=== PATIENT | male | born 1985 | race Caucasian/White ===

== ENCOUNTER 2021-12-01 08:59 | Outpatient (CLI) | payer BC, OTHER, SELFPAY ==
--- NOTE | ~2021-12-01 | XR_ITS ---
EXAMINATION: XR foot LT 2V INDICATION: Left fifth toe pain, initial encounter TECHNIQUE: Two views of the left foot are obtained. COMPARISON: 08/13/2009 FINDINGS: There is an oblique neck fracture of the fifth proximal phalanx. A small amount of perioste al reaction is seen at the fracture site. The joint spaces are normal. No additional fracture is iden tified. There is mild soft tissue swelling of the fifth toe. IMPRESSION: 1. Subacute oblique neck fracture of the fifth proximal phalanx with early healing reaction. Reviewed, dictated and finalized at location F. IMPRESSION: 1. Subacute oblique neck fracture of the fifth proximal phalanx with early heal ing reaction.
== END 2021-12-01 09:00 | disposition home or self-care (01) ==
PROVIDERS: PCP Family Medicine; Visit Provider Family Medicine
DX: S92.512A Displaced fracture of proximal phalanx of left lesser toe(s), initial encounter for closed fracture (principal); X58.XXXA Exposure to other specified factors, initial encounter
CPT/HCPCS: 73620

== ENCOUNTER 2022-07-06 08:10 | Emergency (ER) | payer BC, OTHER, SELFPAY ==
[2022-07-06 08:21] VITALS: BP 135/81; PULSE 84; RESP 16; TEMP 36.8; O2SAT 97
[2022-07-06 08:22] VITALS: BP 135/81; PULSE 84; RESP 16; TEMP 36.8; O2SAT 97
--- NOTE | 2022-07-06 08:27 | ED.URI ---
HPI - URI/Sore Throat General Chief Complaint: Upper Respiratory Infection Stated Complaint: sorethroat,cough,congestion Time Seen by Provider: 07/06/22 08:25 Source: patient, RN notes reviewed and old records reviewed Mode of arrival: ambulatory Limitations: no limitations History of Present Illness HPI Narrative: 36 year old male who presents to [facility] care with complaints of 4- 5 day history of sore throat, low-grade fevers, cough with congestion, headache pain. patient reports he has had COVID vaccinations x2 and also has had flu shot did to a home COVID test Monday which was negative. Patient has been taking Sudafed Mucinex and also has been taking some Tylenol. MD elicited complaint: cough and sore throat Onset (ago): day(s) (4-5 days) Pain scale (0-10): 3 Treatments prior to arrival: acetaminophen and other (Sudafed and Mucinex) Related Data Home Medications Medication Instructions Recorded Confirmed sulconazole 1 % topical cream 1 applic topical DIRECTED 07/06/22 07/06/22 (Exelderm) Allergies Allergy/AdvReac Type Severity Reaction Status Date / Time No Known Allergies Allergy Verified 07/06/22 08:19 Review of Systems Review of Systems: CONSTITUTIONAL: Reports malaise, chills, sweats, or fever. EYES: Denies visual changes, redness, or discharge. ENT: Reports rhinorrhea, congestion, sinus pain,no otalgia, positive for sore throat. CARDIOVASCULAR: Denies chest pain, palpitations, or edema. RESPIRATORY: Reports cough.? Denies dyspnea. GASTROINTESTINAL: Denies abdominal pain, nausea, vomiting, diarrhea SKIN: Denies rash or itching. MUSCULOSKELETAL: Denies myalgia. NEUROLOGIC: Reports headache. All systems reviewed & are unremarkable except as noted in HPI and below PMFSH Past Medical History Medical History (Updated 07/06/22 @ 11:06 by Christina Jackson NP) Back pain herniated disk Kidney stone Surgical History Surgical History (Updated 07/06/22 @ 11:05 by Christina Jackson NP) H/O shoulder surgery History of tonsillectomy and adenoidectomy Family History Family History Father Family history of alcoholism Grandparent Family history of cardiovascular disease Family history of malignant neoplasm Carcinoma of colon Family history of lung cancer Social History Social History (Updated 07/06/22 @ 08:40 by Christina Jackson NP) Smoking status: Never smoker Alcohol intake: current Substance use: never Gender identity (if verbalized by the patient): Male Comments At time of signature, agree with nursing past medical, surgical, social and family history. There is no relevant family history pertinent to the presenting complaint Exam Narrative: GENERAL: Well-appearing, well-nourished, and in no acute distress. HEAD: Normocephalic EYES: PERRLA, conjunctivae clear ENT: Nares clear, turbinates edematous and erythematous, clear discharge. Mucous membranes moist. TM pearly alvarenga with dull light reflex bilaterally; no tragal tenderness. Oropharynx erythematous without lesions. Tonsils not present and throat without exudate, no drooling, no hoarseness, no trismus, uvula midline. NECK: Supple. No lymphadenopathy CHEST: Clear to auscultation, breath sounds equal. No wheezing, rhonchi, rales, or stridor. No respiratory distress, speaks in full sentences.productive cough of green phlegm, SAO2 97% on room air HEART: Regular rate and rhythm. No murmur heard. SKIN: Warm, dry, no rash. NEURO: Alert and oriented x3. PSYCH: Normal mood and affect Course Course Emergency Course: Patient is aware of diagnosis, understands and agrees to treatment plan.? Anticipatory guidance given.? Patient agrees to follow-up as directed and is aware of reasons to seek care at the emergency department. Portions of this record may have been created with voice recognition software Level of Care: Express Care Visit Vital Sign
== END 2022-07-06 08:48 | disposition home or self-care (01) ==
PROVIDERS: Emergency Provider Registered Nurse; PCP Family Medicine
DX: J32.9 Chronic sinusitis, unspecified (principal)
CPT/HCPCS: 99213; G0463

== ENCOUNTER 2023-08-17 03:56 | Emergency (ER) | payer OTHER, SELFPAY ==
--- NOTE | ~2023-08-17 | CT_ITS ---
Non-contrast CT scan of the Abdomen and Pelvis Clinical indication: Right flank pain Technique: 2.5 mm axial scans were obtained through the abdomen and pelvis without intravenous or or al contrast. Dose reduction technique was used on this scan by utilizing automated exposure control a nd iterative reconstruction technique. The dose-length product (DLP) was 1220.63 mGy-cm. Findings: Images through the lung bases reveal no abnormalities. There is a 5-6 mm stone at the proximal right ureter with mild right hydronephrosis is available. The re are multiple additional small bilateral nonobstructing renal stones. No left ureteral stone or lef t hydronephrosis. The liver, spleen, pancreas, gallbladder, and adrenals appear normal. There is no aortic aneurysm. There is no evidence of bowel obstruction. Normal appendix. Images through the pelvis were performed. There is no evidence of ascites or lymphadenopathy. Urinary bladder unremarkable. Prostate gland and seminal vesicles are unremarkable. Impression: 5-6 mm proximal right ureteral stone with mild right hydronephrosis. Additional bilateral nonobstructing renal stones, largest measuring up to 7 mm in the left kidney. Reviewed, dictated and finalized at [facility]. LAYER Impression: 5-6 mm proximal right ureteral stone with mild right hydronephrosis. Additional bilateral nonobstructing renal stones, largest measuring up to 7 mm in the left kidney.
[2023-08-17 03:59] VITALS: BP 185/90; PULSE 106; RESP 20; TEMP 36.8; O2SAT 99
[2023-08-17] MEDS: KETOROLAC 15 MG/ML VIAL (*BKC) IV PUSH (04:21)
[2023-08-17] MEDS: SODIUM CHLORIDE 0.9% IV 1,000 ML 999 ML IV CONT (04:22)
[2023-08-17 04:34] LABS: Basophils Percent Auto 0.5 % (0.2-1.2); Eosinophils Absolute Auto 0.1 K/mm3 (0-0.3); Eosinophils Percent Auto 1.4 % (0-4.4); Hematocrit 50.5 % (42.0-52.0); Hemoglobin 16.8 g/dL (14.0-18.0); Immature Granulocyte Absolute 0.01 K/mm3 (0.00-0.031); Immature Granulocyte Percent A 0.2 % (0-0.5); Lymphocytes Absolute Auto 1.96 K/mm3 (0.9-3.2); Lymphocytes Percent Auto 29.7 % (18.3-44.2); Mean Corpuscular HGB Conc 33.3 g/dl (32-36); Mean Corpuscular Hemoglobin 29.7 pg (26-34); Mean Corpuscular Volume 89.2 fl (80-100); Mean Platelet Volume 9.2 fl (7.4-10.4); Monocytes Absolute Auto 0.8 K/mm3 (0.1-0.6); Monocytes Percent Auto 11.6 % (2.6-8.5); Neutrophils Absolute Auto 3.8 K/mm3 (1.3-6.7); Neutrophils Percent Auto 56.6 % (45.5-73.1); Platelet Count Result 260 k/mm3 (150-375); Red Blood Count 5.66 M/mm3 (4.6-6.20); Red Cell Distribution Width 12.6 % (11.5-14.5); White Blood Count 6.6 K/mm3 (4.5-10.0)
[2023-08-17 04:46] LABS: Alanine Aminotransferase 73 U/L (6-50); Albumin Level 4.2 g/dL (3.5-5.1); Alkaline Phosphatase 96 U/L (38-126); Anion Gap 9 mmol/L (8-16); Aspartate Amino Transferase 51 U/L (17-59); Bilirubin,Total 0.6 mg/dL (0.2-1.3); Blood Urea Nitrogen 18 mg/dL (9-20); Calcium 9.4 mg/dL (8.4-10.2); Carbon Dioxide 23 mmol/L (22-30); Chloride 104 mmol/L (98-107); Estimated CRCL calculation 111 ml/min; Estimated Glomerular Filt Rate > 60; Glucose 117 mg/dL (65-110); Lipase 124 U/L (23-300); Sodium 136 mmol/L (137-145)
--- NOTE | 2023-08-17 05:01 | ED.ABDPAIN ---
HPI - Abdominal Pain General Chief Complaint: Urogenital-Male Stated Complaint: flank pain Time Seen by Provider: 08/17/23 04:08 Source: patient Limitations: no limitations History of Present Illness HPI narrative: patient is a 37-year-old male presents to the emergency department complaining of right flank pain. Patient believes he has a kidney stones this feels similar to his history kidney stones which he had most recently is 90 years ago. Patient said around 1:15 a.m. he woke up to go take care of his child and noticed a slight discomfort in his right flank see took an ibuprofen and shortly thereafter became constant, waxing and waning, sharp, nonradiating, also tried is hydrocodone which she takes chronically for back pain and did not get any significant relief prompting to come in for further evaluation. Patient admits to associated vomiting that appeared consistent with his dinner and denies any current nausea. Patient denies any recent injuries, recent illness, fever, diarrhea, melena, hematochezia, hematuria, dysuria, urinary urgency, urinary frequency, chest pain, difficulty breathing, cough, numbness, weakness. Patient denies any history of stents in his ureters or needing lithotripsy and did not follow-up with a urologist regarding his kidney stone in the past and he was straining his urine and caught a stone And followed with his primary care physician regarding this. Related Data Home Medications Medication Instructions Recorded Confirmed sulconazole 1 % topical cream 1 applic topical DIRECTED 07/06/22 07/06/22 (Exelderm) Allergies Allergy/AdvReac Type Severity Reaction Status Date / Time No Known Allergies Allergy Verified 03/21/23 14:03 Review of Systems Review of Systems: A 10 system review of systems was completed on the patient and is negative except for what is stated in the HPI. Nursing and ancillary documentation was reviewed. [facility] Past Medical History Medical History Back pain herniated disk Fracture of fifth toe, left, closed Kidney stone Lateral epicondylitis of right elbow Surgical History Surgical History H/O shoulder surgery History of tonsillectomy and adenoidectomy Family History Family History Father Family history of alcoholism Grandparent Family history of cardiovascular disease Family history of malignant neoplasm Carcinoma of colon Family history of lung cancer Social History Social History (Updated 03/21/23 @ 14:04 by CLAUDIO Pineda) Smoking status: Never smoker Alcohol intake: current Substance use: never Substance use type: does not use Lack of Transportation: No Lack of Food: Never True Current Housing: I Have Housing Concerned About Future Housing: No Difficulty Paying Gas/Electric Bills: No Difficulty Paying for Meds: No Currently Unemployed: No Education: Associate Degree Difficulty w/ Childcare or Family Care: No Gender identity (if verbalized by the patient): Male Comments At time of signature, I have reviewed and agree with nursing past medical, surgical, social and family history unless otherwise noted. Please see the nursing chart for further information. There is no relevant family history pertinent to the presenting complaint. Exam Narrative: CONST: No acute distress. Well nourished. HENMT: Head is normocephalic and atraumatic. Moist mucous membranes. No posterior oropharynx erythema. EYES: No conjunctival icterus, injection, or pallor. PERRL. NECK: No meningeal signs. RESP: Able to speak in full sentences. Normal respiratory effort. CTAB. CARDIO: Regular rate. Regular rhythm. 2+ DP and radial pulses bilaterally. GI: Nondistended. No tenderness to palpation. Soft. : No CVA tenderness to palpation. SKIN: No r
[2023-08-17 05:44] VITALS: BP 148/100; PULSE 80; RESP 15; O2SAT 98
[2023-08-17 05:59] LABS: Appearance Urine Clear (Clear); Bacteria Urine None Seen /hpf; Bilirubin Urine Negative (Negative); Color Urine Yellow (Yellow); Glucose Urine UA Negative (Negative); Ketones Urine Negative (Negative); Leukocyte Esterase Ur Negative LEU/UL (Negative); Nitrate Urine Negative (Negative); Non Pathogenic Casts 0-2; Protein Urine Negative (Negative); Specific Grav Ur 1.014 (1.001-1.035); Squamous Epithelial Cell Urine None seen /hpf (Few); Urobilinogen Urine 0.2 mg/dL (<2.0); WBC Urine 0-5 /hpf; pH Urine 6.5 (5.0-9.0)
[2023-08-17 06:04] LABS: Add Urine Microscopic? YES
[2023-08-17] MEDS: TAMSULOSIN HCL 0.4 MG CAPSULE PO (06:58)
[2023-08-17 07:28] VITALS: BP 143/92; PULSE 82; RESP 16; O2SAT 98
== END 2023-08-17 07:29 | disposition home or self-care (01) ==
PROVIDERS: Emergency Provider Student in an Organized Health Care Education/Training Program; PCP Family Medicine
DX: N13.2 Hydronephrosis with renal and ureteral calculous obstruction (principal); Z87.442 Personal history of urinary calculi
CPT/HCPCS: 36415; 74176; 80053; 81001; 83690; 83735; 85025; 96361; 96374; 99284; A9270; J1885; J7030

== ENCOUNTER 2023-09-06 13:53 | Outpatient (CLI) | payer OTHER, SELFPAY ==
--- NOTE | ~2023-09-06 | XR_ITS ---
EXAMINATION: XR abdomen/kub 1V DATE: 09/06/2023 14:10 INDICATION: Right ureteral stone. TECHNIQUE: A supine view of the abdomen on 2 radiographs was obtained. COMPARISON: CT abdomen and pelvis 08/17/2023 FINDINGS: There are no dilated loops of bowel. There is a 4 mm stone in right kidney. There are appro ximately 4 visible stones in left kidney measuring up to 7 mm. There is a benign bone island in right sacrum. There is a 5 mm stone in distal right ureter overlying the sacrum. IMPRESSION: 1. 5 mm stone in distal right ureter overlying the sacrum. 2. Bilateral kidney stones. Reviewed, dictated and finalized at location E. RAFT CAPTAIN
== END 2023-09-06 13:54 | disposition home or self-care (01) ==
PROVIDERS: PCP Family Medicine; Visit Provider Urology
DX: N20.1 Calculus of ureter (principal); N20.0 Calculus of kidney
CPT/HCPCS: 74018

== ENCOUNTER 2023-10-02 13:29 | Outpatient (CLI) | payer OTHER, SELFPAY ==
[2023-10-02 14:42] LABS: INR 0.9; Prothrombin Time 12.3 Seconds (11.1-14.7)
[2023-10-02 14:43] LABS: Partial Thromboplastin Time 29.1 Seconds (22.3-36.8)
== END 2023-10-02 13:30 | disposition home or self-care (01) ==
PROVIDERS: PCP Family Medicine; Visit Provider Urology
DX: N20.1 Calculus of ureter (principal); Z01.818 Encounter for other preprocedural examination
CPT/HCPCS: 36415; 85610; 85730; 87086

== ENCOUNTER 2023-10-06 01:40 | Day surgery (SDC) | payer OTHER, SELFPAY ==
[2023-09-27 15:15] VITALS: BMI 29.7
--- NOTE | 2023-09-27 15:20 | PC.NURSE ---
Report to the Outpatient Waiting Room, entrance under the green pavilion located off [facility], at time 6:30 on date 10/06/23. Planned Procedure Time: 8:30. Time changes happen often and if your time is changed the preop area will call you the afternoon before. - You and your visitor will be asked to self-screen and do not enter if you have any COVID symptoms. - A mask is optional within the hospital at this time. Patients may have clear liquids (water, carbonated beverages, clear teas, apple juice) until 3 hours prior to surgery with a maximum of 20 ounces. - No food from midnight until time of surgery Take the following medications with a SIP of water the morning of surgery: HYDROCODONE IF NEEDED DO NOT STOP ANY OF YOUR OTHER PRESCRIPTION MEDICATIONS PRIOR TO SURGERY ?EXCEPT THE FOLLOWING Medications to discontinue per physician: KETOROLAC Date to take last dose: 09/28/23 Please no make-up, nail occitan, hairspray, perfume, deodorant, or body powder the day of surgery. No jewelry (including any body piercings) or valuables the day of surgery, leave them at home. Please take a shower or bath the night before, or the morning of, surgery with an antibacterial soap. Wear comfortable, loose fitting clothing. - Jewelry must be removed prior to entering the operating room. Rings and piercings that are not removed may be cut off. - The hospital will not accept responsibility for valuables. - Please leave all valuables, including medications, at home the day of surgery. If you are going home after surgery, a licensed milk pickup truck driver must drive you home. - NO public transportation without another adult if you receive anesthesia. - We recommend that an adult stay with you for 24 hours following discharge. - We also recommend that you do not drive, make important decision, drink alcoholic beverages, or take any drugs that were not prescribed by your health care provider for at least 24 hours after your discharge time. Follow any additional instructions given to you from your surgeon. If you or anyone in your household have experienced Covid symptoms in the past week, please notify your surgeon or the nurse liaison at the phone number below for possible testing. Telephone instructions given to PT - JORGE and asked if any additional questions and then verbalized understanding. Patient advised to call surgeon office or pre surgery nurse liaison [phone] if any additional questions.
--- NOTE | 2023-09-28 07:28 | PM.HPGS ---
History of Present Illness History of Present Illness Consent: Risks, benefits, and alternatives have been discussed and questions answered. Patient agrees to proceed with procedure. Chief complaint: Right Ureteral Stone Narrative: Jorden Singer is a 37 year old male who has been cared for by Dr. Leach to this point. He had a right proximal ureteral stone and underwent outpatient right ESWL on 08/29/23. He continued to have pain follow-up KUB imaging at [facility] suggested a 5 mm stone overlying his right sacrum. Additionally he has a 4 mm stone in his right kidney and a similar size stone in his left kidney. After discussion of options he has elected for repeat right ureteral and/or renal ESWL. He is aware the risk including, but not limited to, need for additional procedures, hematuria perinephric hematoma Review of Systems Review of Systems: All systems reviewed & are unremarkable except as noted in HPI and below PMFSH Past Medical History Medical History Back pain herniated disk Fracture of fifth toe, left, closed Kidney stone Lateral epicondylitis of right elbow Surgical History Surgical History H/O shoulder surgery History of tonsillectomy and adenoidectomy Family History Family History Father Family history of alcoholism Grandparent Family history of cardiovascular disease Family history of malignant neoplasm Carcinoma of colon Family history of lung cancer Social History Social History (Updated 03/21/23 @ 14:04 by Daniel Breen ORT) Smoking status: Never smoker Alcohol intake: current Drinks per week: 6 Alcohol use details: WEEKENDS Substance use: never Substance use type: does not use Lack of Transportation: No Lack of Food: Never True Current Housing: I Have Housing Concerned About Future Housing: No Difficulty Paying Gas/Electric Bills: No Difficulty Paying for Meds: No Currently Unemployed: No Education: Associate Degree Difficulty w/ Childcare or Family Care: No Living arrangements: with family Gender identity (if verbalized by the patient): Male Spiritual care concerns: No Meds Home Medications and Allergies Home Medications Medication Instructions Recorded Confirmed Type ketorolac 10 mg tablet 10 mg PO Q6H PRN pain 5 days #20 08/17/23 09/27/23 Rx tabs tamsulosin 0.4 mg capsule (Flomax) 0.4 mg PO DAILY #14 caps 08/17/23 09/27/23 Rx hydrocodone 5 mg-acetaminophen 325 1 tablet PO .qhs #30 tabs 09/20/23 09/27/23 Rx mg tablet hydrocodone 5 mg-acetaminophen 325 1 tablet PO DAILY PRN pain #30 tabs 09/20/23 09/27/23 Rx mg tablet Allergies Allergy/AdvReac Type Severity Reaction Status Date / Time No Known Allergies Allergy Verified 09/27/23 15:13 Exam Const: General: no acute distress Resp: Effort & Inspection: normal respiratory effort GI: Inspection: non-distended GI Palp: No abdominal tenderness and No Guarding due to palpation present (GI) Auscultation: normal bowel sounds Assessment and Plan Assessment and plan (1) Right ureteral stone: Code(s): N20.1 - Calculus of ureter Status: Acute (2) Bilateral kidney stones: Code(s): N20.0 - Calculus of kidney Status: Acute Assessment and Plan: Right ESWL to include possible ureteral stone and/ or right kidney stone
--- NOTE | ~2023-10-06 | CT_ITS ---
EXAMINATION: CT abdomen pelvis wo con DATE: 10/06/2023 07:27 INDICATION: Right ureteral stone. TECHNIQUE: Computed tomography (CT) of the abdomen and pelvis was performed without intravenous contr ast. Automated exposure control and iterative reconstruction technique were employed. The dose-length product was 308.21 mGy-cm. COMPARISON: CT abdomen and pelvis 08/17/2023 FINDINGS: The visualized portions of the lung bases demonstrate minimal atelectasis. No pleural effus ion. The heart size is normal. No pericardial effusion. There is diffuse hepatic steatosis. The gallb ladder, spleen, pancreas, and adrenal glands are normal. There is a 4 mm stone in right kidney. There are approximately 8 stones in left kidney measuring up to 7 mm. The ureters are normal. There are no dilated loops of bowel. The appendix is normal. There are no pathologically enlarged lymph nodes. Th ere is no free intraperitoneal fluid. There is moderate thoracic and lumbar spondylosis. IMPRESSION: 1. Bilateral nonobstructing kidney stones. Reviewed, dictated and finalized at location A.
--- NOTE | ~2023-10-06 | XR_ITS ---
EXAMINATION: XR abdomen/kub 1V DATE: 10/06/2023 06:49 INDICATION: Kidney stone. TECHNIQUE: A supine view of the abdomen on 2 radiographs was obtained. COMPARISON: Abdomen radiographs 09/06/2023, CT abdomen and pelvis 08/17/2023 FINDINGS: There are no dilated loops of bowel. There is a 3 mm stone in right kidney. There are appro ximately 4 stones in left kidney measuring up to 7 mm. There are phleboliths in the pelvis. IMPRESSION: 1. Bilateral kidney stones. Reviewed, dictated and finalized at location A. IMPRESSION: 1. Bilateral kidney stones.
--- NOTE | 2023-10-06 06:09 | WPDHPUPDATE1 ---
History and Physical Update Update Date/Time: 10/06/23 06:09 History and Physical has been reviewed, including an updated exam of the patient. There are NO changes in the patient's condition. Risks, benefits, and alternatives have been discussed and questions answered. Patient agrees to proceed with procedure.
[2023-10-06 06:51] VITALS: BP 151/89; PULSE 86; RESP 16; TEMP 36.8; O2SAT 97
[2023-10-06] MEDS: LACTATED RINGERS 1,000 ML 30 ML IV CONT (07:05)
--- NOTE | 2023-10-06 07:20 | WPDANESEPPF ---
Anes - Initial Pre Proc Eval Procedure: Operation Date: 10/06/23 08:30 Proposed Procedures p Right Extracorporeal Shock Wave Lithotripsy - Chris Mcgee MD Date/Time: 10/06/23 07:20 Surgeon: Chris Mcgee MD Pre Op Diagnosis: Right Ureteral Stone Patient Data Age: 37 Gender: M Height: 1.85 m Weight: 104.9 kg Last Vital Signs Temp 98.2 F 10/06/23 06:51 Pulse 86 10/06/23 06:51 Resp 16 10/06/23 06:51 BP 151/89 H 10/06/23 06:51 Pulse Ox 97 10/06/23 06:51 O2 Del Method Room Air 10/06/23 06:51 Allergies Allergy/AdvReac Type Severity Reaction Status Date / Time No Known Allergies Allergy Verified 10/06/23 07:18 Home Medications Medication Instructions Recorded Confirmed Type ketorolac 10 mg tablet 10 mg PO Q6H PRN pain 5 days #20 08/17/23 10/06/23 Rx tabs tamsulosin 0.4 mg capsule (Flomax) 0.4 mg PO DAILY #14 caps 08/17/23 10/06/23 Rx hydrocodone 5 mg-acetaminophen 325 1 tablet PO .qhs #30 tabs 09/20/23 10/06/23 Rx mg tablet hydrocodone 5 mg-acetaminophen 325 1 tablet PO DAILY PRN pain #30 tabs 09/20/23 10/06/23 Rx mg tablet Patient hx anesthesia problems: none Family hx anesthesia problems: none Results Review: All pre-operative results and documents have been reviewed as part of the pre-operative evaluation. [facility] Past Medical History Medical History Back pain herniated disk Fracture of fifth toe, left, closed Kidney stone Lateral epicondylitis of right elbow Surgical History Surgical History H/O shoulder surgery History of tonsillectomy and adenoidectomy Family History Family History Father Family history of alcoholism Grandparent Family history of cardiovascular disease Family history of malignant neoplasm Carcinoma of colon Family history of lung cancer Social History Social History (Updated 03/21/23 @ 14:04 by Daniel Breen ORT) Smoking status: Never smoker Alcohol intake: current Drinks per week: 6 Alcohol use details: WEEKENDS Substance use: never Substance use type: does not use Lack of Transportation: No Lack of Food: Never True Current Housing: I Have Housing Concerned About Future Housing: No Difficulty Paying Gas/Electric Bills: No Difficulty Paying for Meds: No Currently Unemployed: No Education: Associate Degree Difficulty w/ Childcare or Family Care: No Living arrangements: with family Gender identity (if verbalized by the patient): Male Spiritual care concerns: No Anes - Eval Final PreProcedure Day of Procedure 10/06/23 07:20 Patient weight: normal Heart: regular rate and rhythm Lungs: clear to auscultation Airway: Mallampati scale class 1 Neurological: alert and oriented Last oral intake: >/= 8 hours ASA classification: I Emergent: no Anesthetic plan: proceed Anesthesia type and monitoring: general and standard monitoring Results Review: All pre-operative results and documents have been reviewed as part of the pre-operative evaluation. Informed Consent: The patient's anesthetic plan and its attendant risks and benefits were discussed with the patient/family/POA. Questions were solicited and answers provided to the satisfaction of the patient/family/POA.
[2023-10-06] MEDS: ceFAZolin 2 GM/D5W 50 ML 2 GM/50 ML BAG IVPB (08:15)
--- NOTE | 2023-10-06 08:23 | W.PM.PROC2 ---
Procedure Note - Detailed Date of Procedure 10/06/23 Pre-op Diagnosis Left Renal Stone Post-op Diagnosis Same Procedure Performed Left ESWL Surgeon Chris Mcgee MD Anesthesia General Description of Procedure The patient was brought to the operative suite where he was placed in the supine position on the Dornier lithotripsy table. The focal point of the lithotripter was placed at a 7mm left lower calyceal calculus. A total of 2500 shocks were delivered at a power setting of 4. There appeared to be good fragmentation of the stone. The patient tolerated the procedure well and was taken to the recovery room in good condition. Drains No Packing No Complications No immediate complications Condition Stable Disposition PACU
[2023-10-06 09:01] VITALS: BP 138/86; PULSE 72; RESP 14; TEMP 36.6; O2SAT 100
[2023-10-06 09:05] VITALS: O2SAT 99
[2023-10-06 09:20] VITALS: BP 145/96; PULSE 78; RESP 18; O2SAT 100
[2023-10-06 09:27] VITALS: BP 140/98; PULSE 75
[2023-10-06 10:07] VITALS: BP 139/100; PULSE 73
== END 2023-10-06 10:08 | disposition home or self-care (01) ==
PROVIDERS: PCP Family Medicine; Visit Provider Urology
PROC: (CPT 50590; principal; 2023-10-06 08:30)
DX: N20.0 Calculus of kidney (principal)
CPT/HCPCS: 50590; 36415; 74018; 74176; 82365; 85610; 85730; 87086; 88300; J0690; J1100; J2250; J2405; J2704; J3010; J7120

== ENCOUNTER 2023-10-20 14:28 | Outpatient (CLI) | payer OTHER, SELFPAY ==
--- NOTE | ~2023-10-20 | XR_ITS ---
EXAMINATION: XR abdomen/kub 1V DATE: 10/20/2023 14:40 INDICATION: Calculus of kidney. TECHNIQUE: A supine view of the abdomen on 2 radiographs was obtained. COMPARISON: Abdomen radiographs 10/06/23, CT abdomen and pelvis 10/06/2023 FINDINGS: There are no dilated loops of bowel. There is a 3 mm stone in right kidney. There are 6 sto idalia in left kidney measuring up to 5 mm. There are phleboliths in the pelvis. IMPRESSION: 1. Bilateral kidney stones. Reviewed, dictated and finalized at location E. IMPRESSION: 1. Bilateral kidney stones.
== END 2023-10-20 14:29 | disposition home or self-care (01) ==
LOC: ANHIMG 14:30
PROVIDERS: PCP Family Medicine; Visit Provider Urology
DX: N20.0 Calculus of kidney (principal)
CPT/HCPCS: 74018

== ENCOUNTER 2024-04-25 15:21 | Outpatient (CLI) | payer BC, SELFPAY ==
--- NOTE | ~2024-04-25 | XR_ITS ---
Exam: Abdomen 2V HISTORY: kidney stone COMPARISON: 10/20/2023 TECHNIQUE: Supine images of the abdomen and pelvis. FINDINGS: Bowel gas pattern is non-obstructive. There is no free air or deep sulci. Multiple 2 and 3 mm calcifications projecting over the bilateral kidneys. The largest projects over the upper pole of the right kidney measuring 3 mm (unchanged from prior). There are 2 punctate calcifications within the upper pole of the left kidney and a bilobed calcificat ion within the lower pole of the left kidney (all are an interval change from prior). Lung bases are unremarkable. Bones and soft tissues are unremarkable. IMPRESSION: Bilateral renal calculi, as detailed above. Reviewed, dictated and finalized at location A.
== END 2024-04-25 15:22 | disposition home or self-care (01) ==
PROVIDERS: PCP Family Medicine; Visit Provider Urology
DX: N20.0 Calculus of kidney (principal)
CPT/HCPCS: 74018

== ENCOUNTER 2024-06-27 08:51 | Emergency (ER) | payer BC, SELFPAY ==
[2024-06-27 09:15] VITALS: BP 129/87; PULSE 109; RESP 16; TEMP 37.4; O2SAT 99
--- NOTE | 2024-06-27 09:34 | ED.URI ---
HPI - URI/Sore Throat General Chief Complaint: Upper Respiratory Infection Stated Complaint: Possible Strep Time Seen by Provider: 06/27/24 09:38 Source: patient Mode of arrival: ambulatory Limitations: no limitations History of Present Illness HPI Narrative: Jorden is a 38-year-old male patient presenting to the clinic today with complaints of possible strep. He reports his tested positive for strep on Joce [facility]ie. Is having runny nose, cough, sore throat, body aches, and chills. Denies any known fever. Symptoms started yesterday. No chest pain or shortness of breath. MD elicited complaint: sore throat and nasal congestion Related Data Home Medications ?Medication ?Instructions ?Recorded ?Confirmed ?Last Taken ?Type tizanidine 2 mg capsule mg 06/27/24 Unknown History Allergies Allergy/AdvReac Type Severity Reaction Status Date / Time No Known Allergies Allergy Verified 06/27/24 09:07 Review of Systems Review of Systems: Pertinent positives per HPI. Patient denies any fever, rash, headache, visual changes, dizziness, shortness of breath, chest pain, palpitations, nausea, vomiting, diarrhea, constipation, abdominal pain, or any urinary issues. [facility] Past Medical History Medical History Lateral epicondylitis of right elbow Back pain herniated disk Kidney stone Fracture of fifth toe, left, closed Surgical History Surgical History History of tonsillectomy and adenoidectomy H/O shoulder surgery Family History Family History Father Family history of alcoholism Grandparent Family history of cardiovascular disease Family history of malignant neoplasm Carcinoma of colon Family history of lung cancer Social History Social History Smoking status: Never smoker Alcohol intake: current Drinks per week: 6 Alcohol use details: WEEKENDS Substance use: never Substance use type: does not use Lack of Transportation: No Lack of Food: Never True Current Housing: I Have Housing Concerned About Future Housing: No Difficulty Paying Gas/Electric Bills: No Difficulty Paying for Meds: No Currently Unemployed: No Education: Associate Degree Difficulty w/ Childcare or Family Care: No Living arrangements: with family Gender identity (if verbalized by the patient): Male Spiritual care concerns: No Comments At the time of my signature, I reviewed and agree with the nursing past medical, surgical, social, and family history. There is no relevant family history pertinent to the patient complaint. Exam Narrative: General: Well-developed, well nourished, in no apparent distress Head: Normocephalic, atraumatic Eyes: Pupils equally round and reactive to light bilaterally, EOM intact, sclera and conjunctive clear, no discharge, lids normal Ears: TMs intact and congested ear canals clear, no drainage, grossly hearing normal. Nose: Nares patent, clear nasal discharge, no inflammation, no sinus tenderness. Mouth: Oral pharynx red without lesions or masses, good dentition, MMM. Postnasal drip Neck: Supple, trachea midline, no enlargement of anterior or posterior cervical nodes, no thyroid masses or goiter palpable. Cardio: Regular rate and rhythm, s1 and s2 normal, no murmur appreciated. Resp: Clear to auscultation bilaterally, no rhonchi, rales, wheezing or rubs Course Course Emergency Course: Portions of this record may have been created with voice recognition software. Level of Care: Express Care Visit Vital Signs Vital signs: Vital Signs Temperature 37.4 C 06/27/24 09:15 Pulse Rate 109 H 06/27/24 09:15 Respiratory Rate 16 06/27/24 09:15 Blood Pressure 129/87 06/27/24 09:15 Pulse Oximetry 99 06/27/24 09:15 Temperature 37.4 C 06/27/24 09:15 Pulse Rate 109 H 06/27/24 09:15 Respiratory Rate 16 06/27/24 09:15 Blood Pressure 129/87 06/27/24 09:15 Pulse Oximetry 99 06/27/24 09:15 Vital signs reviewed MDM - URI/Sore Throat MDM Narrative Medical decision making narrative: At the time of visit patient is resting comfortably on the exam table. Patient appears to be nontoxic. Labs: COVID, influenza, and strep test were all performed and negative in the clinic today. We will send strep for culture. Plan: I suspect patient has URI/pharyngitis. Will send in prescription for prednisone for nasal congestion. Supportive measures were discussed with the patient and they voiced understanding discharge instructions and agrees to treatment plan. Return precautions reviewed Differential Diagnosis Differential diagnosis: Likely upper respiratory infection, otitis media, sinusitis, viral infection, bronchitis, influenza, pharyngitis and other (COVID) Discharge Plan Discharge Clinical Impression: URI (upper respiratory infection) Qualifiers: URI type: unspecified URI Qualified Code(s): J06.9 - Acute upper respiratory infection, unspecified Pharyngitis Qualifiers: Pharyngitis/tonsillitis etiology: unspecified etiology Qualified Code(s): J02.9 - Acute pharyngitis, unspecified Patient Disposition: Home, Self-Care Condition: Stable Instructions: Antibiotic Form, Pharyngitis (ED), Cold Symptoms (ED) Additional Instructions: Strep test was negative in the clinic today. We will send strep for culture if this comes back positive we will contact you in place you on antibiotics at that time. COVID and influenza testing was negative in the clinic today. Increase fluids and stay well hydrated Tylenol/motrin for pain/fever Flonase and OTC antihistamines as directed Vicks vapor rub to open sinuses Sinus rinses for congestion Cepacol spray, cough drops, throat lozenges, warm tea with honey/lemon, gargle salt water to soothe throat BRAT diet for diarrhea Clear liquids x 24 hours then advance as tolerated for nausea/vomiting Go to the ED if you develop a worsening in your condition- high fever not controlled by Tylenol or Motrin, dehydration, weakness, lethargy, shortness of breath, or chest pain. Follow up with your PCP in 3-5 days if symptoms persist. Patient Language: Slovak Prescriptions: No Action tizanidine 2 mg capsule fluconazole 150 mg tablet 150 mg PO Q72H PRN (Reason: rash) Qty: 3 0RF ketorolac 10 mg tablet 10 mg PO Q6H PRN (Reason: pain) 5 Days Qty: 20 0RF hydrocodone-acetaminophen 5-325 mg tablet 1 tablet PO DAILY PRN (Reason: pain) Qty: 30 0RF Rx Instructions: JUNE hydrocodone-acetaminophen 5-325 mg tablet 1 tablet PO .qhs Qty: 30 0RF Rx Instructions: July hydrocodone-acetaminophen 5-325 mg tablet 1 tablet PO DAILY PRN (Reason: pain) Qty: 30 0RF Rx Instructions: August Follow-up/Referrals: Kesha Parra MD [Primary Care Provider] - Time of Disposition: 09:39 Quality NIHSS Nursing Documentation ED NIHSS nursing documentation: reviewed/agree
[2024-06-27 09:39] LABS: EDCOVIDSCREEN Negative (Negative); EDINFLUASCREEN Negative (Negative); EDINFLUBSCREEN Negative (Negative); EDSTREPNEGPOS1 Negative (Negative)
== END 2024-06-27 09:47 | disposition home or self-care (01) ==
PROVIDERS: Emergency Provider Nurse Practitioner Family; PCP Family Medicine
DX: J02.0 Streptococcal pharyngitis (principal); Z20.822 Contact with and (suspected) exposure to COVID-19
CPT/HCPCS: 87081; 87426; 87804; 87880; 99213; G0463

== ENCOUNTER 2025-02-12 14:27 | Outpatient (CLI) | payer BC, SELFPAY ==
--- NOTE | ~2025-02-12 | XR_ITS ---
Exam: Left knee x-ray 4 views HISTORY: Injury of left lower leg COMPARISON: None available at this time. TECHNIQUE: 4 images of the left knee were obtained. FINDINGS: Bone mineralization is within normal limits. No fracture. No dislocation. Small suprapatellar effusio n. Mild narrowing of the medial compartment and patellofemoral joint. Soft tissue swelling about the left knee. IMPRESSION: 1. No acute bony adenopathy identified. If symptoms persist or worsen, consider a short-term follow-up study or additional imaging for furthe r assessment. Reviewed, dictated and finalized at location A. IMPRESSION: 1. No acute bony adenopathy identified. If symptoms persist or worsen, consider a short-term follow-up study or additio nal imaging for further assessment.
--- OUTSIDE RECORDS SUMMARY | 2025-02-12 14:31 | XMS_ITS | Clinical Summary ---
Author Organization [facility] Address [address] [place] [address] Care Team Providers Care Manager Work Name Role Phone Kesha Parra MD Primary Care Provider [phone] Source Comments [facility],non-owned Affiliates and Associated Physician Practices is amultiple site organization consisting of ambulatory clinics and hospital sitesin [place], [place], [place] and [place]. This disclosure is being madepursuant to the Care Everywhere program and may not contain all information available regarding this patient. Last updated 18.[facility] Allergies No known active allergies Medications * Be aware that medications may not be up to date on this document. Alwaysverify current medications with the patient. HYDROcodone-alyce taminophen (NORCO) 5-325 MG tablet Take 1 tablet by mouth every 4 hours as needed for Pain Active gabapentin (NEURONTIN) 300 MG capsule Take 300 mg by mouth 3 times daily Active cyclobenzaprine (FLEXERIL) 10 MG tablet Take 10 mg by mouth at bedtime Active Family History Medical History Relation Name Comments Cancer - Colon Maternal Grandfather Other Mother blood thickenin g Cancer - Lung Paternal Grandfather Cancer - Lung Paternal Grandmother Relation Name Status Comments Maternal Grandfather Mother Paternal Grandfather Paternal Grandmother Social History Tobacco Use Types Packs/Day Years Used Date Smoking Tobacco: Never Smokeless Tobacco: Never Sex and Gender Information Value Date Recorded Sex Assigned at Not on file 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 Gender Identity Not on file Sexual Orientation Not on file Last Filed Vital Signs Vital Sign Reading Time Taken Comments Blood Pressure 134/82 07/10/2017 9:36 AM SCHOOL OFFICE ASSISTANT Pulse 104 07/10/2017 9:36 AM SCHOOL OFFICE ASSISTANT Temperature 37.1 C (98.7 F) 07/10/2017 9:36 AM SCHOOL OFFICE ASSISTANT Respiratory Rate 18 07/10/2017 9:36 AM SCHOOL OFFICE ASSISTANT Oxygen Saturation 96% 07/10/2017 9:36 AM SCHOOL OFFICE ASSISTANT Inhaled Oxygen Concentration - - Weight 98.9 kg (218 lb) 07/10/2017 9:36 AM SCHOOL OFFICE ASSISTANT Height 185.4 cm (6' 1) 07/10/2017 9:36 AM SCHOOL OFFICE ASSISTANT Body Mass Index 28.76 07/10/2017 9:36 AM SCHOOL OFFICE ASSISTANT Plan of Treatment Health Maintenance Due Date Last Done Comments HIV SCREENING 2001 HEPATITIS C SCREENING 12/02/2004 DTAP/TDAP/TD VACCINES (1 - Tdap) 2005 HEPATITIS B VACCINE (1 of 3 - 19+ 3-dose series) 2005 HPV VACCINE (1 - 3-dose SCDM series) 2013 COVID-19 VACCINE (1 - 2023-2 5 season) 2024 DEPRESSION SCREENING 07/03/2024 INFLUENZA VACCINE (#1) 2025 ZOSTER VACCINE (1 of 2) 2036 HIB VACCINE Aged Out No longer eligi ble based on patient's age to complete this topic MENINGOCOCCAL (Group B) VACC INE SHARED DECISION-MAKING Aged Out No longer eligibl e based on patient's age to complete this topic MENINGOCOCCAL GROUPS A/C/Y/W VACCINE Aged Out No longer eligible b ased on patient's age to complete this topic PNEUMOCOCCAL VACCINE Aged Out No long er eligible based on patient's age to complete this topic Insurance SELF PAY NO INSURANCE Member Subscriber Plan / Payer (Ef fective for All Dates) Name:Jorge Meadows Member ID:Not on file Relation to Subscriber:Not on file Name:JORGE MEADOWS Subscriber ID:Not on file Address: [address] [place] [address] Payer ID:Not on file Group ID:Not on file Type:Self Pay Address: [place], [place] [facility] SELF PAY NO INSURANCE Member Subscriber Plan / Payer (Ef fective for All Dates) Name:Lindsey Meadowsd Member ID:Not on file Relation to Subscriber:Not on file Name:JORGE MEADOWS Subscriber ID:Not on file Address: [address] [place] [address] Payer ID:Not on file Group ID:Not on file Type:Self Pay Address: [place], [place] [employer] SELF PAY NO INSURANCE Member Subscriber Plan / Payer (Ef fective for All Dates) Name:Jorge Meadows Member ID:Not on file Relation to Subscriber:Not on file Name:JORGE MEADOWS Subscriber ID:Not on file Address: [address] [place] [id number] Payer ID:Not on file Group ID:Not on file Type:Self Pay Address: [place], [place] Care Teams Manager Work Relationship Specialty Start Date End Date Kesha Parra MD [address] [place] [address] PCP - General Family Medicine 07/10/17
== END 2025-02-12 14:28 | disposition home or self-care (01) ==
PROVIDERS: PCP Family Medicine; Visit Provider Nurse Practitioner Family
DX: S89.92XA Unspecified injury of left lower leg, initial encounter (principal); X58.XXXA Exposure to other specified factors, initial encounter
CPT/HCPCS: 73564

== ENCOUNTER 2025-02-28 14:32 | Outpatient (CLI) | payer BC, SELFPAY ==
--- NOTE | ~2025-02-28 | MR_ITS ---
EXAMINATION: MR knee LT wo con DATE: 02/28/2025 15:06 INDICATION: Left lower leg injury TECHNIQUE: Magnetic resonance imaging (MRI) of the left knee was performed without intravenous contrast. Sequences included coronal PD-weighted FSE, coronal PD-weighted FS FSE, sagittal T2-weighted FSE, sagittal PD-weighted FS FSE and axial PD weighted fat saturated FSE. COMPARISON: None. FINDINGS: Medial compartment: Medial meniscus is normal. Articular cartilage is normal. Lateral compartment: Lateral meniscus is normal. There is prominent marrow edema along the lateral margin of the central weightbearing lateral femoral condyle where there is a small nondisplaced likely impaction fracture. The overlying cartilage appears to remain intact. There is however some chondral fissuring along the posterior aspect of the lateral tibial plateau underlying the posterior horn of the lateral meniscus which could be either degenerative or related to trauma associated with the impaction fracture. Patellofemoral compartment: Articular cartilage is normal. Ligaments and tendons: Anterior and posterior cruciate ligaments are normal. The fibular collateral ligament is normal. There is a high-grade partial or more likely complete tear medial collateral ligament located approximately midway between the level of its femoral origin and the level of the knee joint line. The extensor mechanism is normal. The visualized medial and lateral hamstring tendons as well as the iliotibial band are normal. Fluid: Physiologic amount of fluid in the joint space. No loose osteochondral bodies identified. IMPRESSION: 1. High-grade partial or more likely complete tear of the proximal medial collateral ligament. 2. Small nondisplaced impaction fracture along the lateral rim of the central weightbearing lateral femoral condyle. 3. Chondral fissuring along the posterior aspect of the lateral tibial plateau which given age is unlikely degenerative in etiology and more likely secondary to chondral injury occurring in conjunction with the impaction fracture. Reviewed, dictated and finalized at location A. IMPRESSION: 1. High-grade partial or more likely complete tear of the proximal medial colla teral ligament. 2. Small nondisplaced impaction fracture along the lateral rim of the central w eightbearing lateral femoral condyle. 3. Chondral fissuring along the posterior aspect of the lateral tibial plateau which given age is unlikely degenerative in etiology and more likely secondary to chondral injury occurring in conjunction with the impaction fracture.
== END 2025-02-28 14:33 | disposition home or self-care (01) ==
LOC: GOSHIMG 14:33
PROVIDERS: PCP Family Medicine; Visit Provider Nurse Practitioner Family
DX: S83.412A Sprain of medial collateral ligament of left knee, initial encounter (principal); S72.415A Nondisplaced unspecified condyle fracture of lower end of left femur, initial encounter for closed fracture; M94.8X6 Other specified disorders of cartilage, lower leg; X58.XXXA Exposure to other specified factors, initial encounter
CPT/HCPCS: 73721

== ENCOUNTER 2025-04-29 09:19 | Outpatient (CLI) | payer BC, SELFPAY ==
--- NOTE | ~2025-04-29 | XR_ITS ---
EXAMINATION: XR abdomen/kub 1V, 04/29/2025 9:30 CDT HISTORY: kidney stone FOLLOW UP COMPARISON: No comparisons available. Technique: 3 view. Findings: Bowel gas pattern unremarkable. No obstruction. No free air. No abnormal calcifications No acute osseous abnormality. Impression: 1. Fecal content obscures evaluation, no renal calculi identified Reviewed, dictated and finalized at location P. Impression: 1. Fecal content obscures evaluation, no renal calculi identified
--- OUTSIDE RECORDS SUMMARY | 2025-04-29 10:12 | XMS_ITS | Clinical Summary ---
Author Organization [facility] [employer] Address [address] [place] [address] Care Team Providers Care Buildings And Grounds Director Name Role Phone Kesha Parra MD Primary Care Provider [phone] Source Comments [facility] [employer] [facility] [employer],non-owned Affiliates and Associated Physician Practices is amultiple site organization consisting of ambulatory clinics and hospital sitesin [place], [place], [place] and [place]. This disclosure is being madepursuant to the Care Everywhere program and may not contain all information available regarding this patient. 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 Gender Identity Not on file Sexual Orientation Not on file Last Filed Vital Signs Vital Sign Reading Time Taken Comments Blood Pressure 134/82 07/10/2017 9:36 AM CHEMICAL PLANT OPERATOR SUPERVISOR Pulse 104 07/10/2017 9:36 AM CHEMICAL PLANT OPERATOR SUPERVISOR Temperature 37.1 C (98.7 F) 07/10/2017 9:36 AM CHEMICAL PLANT OPERATOR SUPERVISOR Respiratory Rate 18 07/10/2017 9:36 AM CHEMICAL PLANT OPERATOR SUPERVISOR Oxygen Saturation 96% 07/10/2017 9:36 AM CHEMICAL PLANT OPERATOR SUPERVISOR Inhaled Oxygen Concentration - - Weight 98.9 kg (218 lb) 07/10/2017 9:36 AM CHEMICAL PLANT OPERATOR SUPERVISOR Height 185.4 cm (6' 1) 07/10/2017 9:36 AM CHEMICAL PLANT OPERATOR SUPERVISOR Body Mass Index 28.76 07/10/2017 9:36 AM CHEMICAL PLANT OPERATOR SUPERVISOR Plan of Treatment Health Maintenance Due Date Last Done Comments HIV SCREENING 2001 HEPATITIS C SCREENING 12/02/2004 DTAP/TDAP/TD VACCINES (1 - Tdap) 2005 HEPATITIS B VACCINE (1 of 3 - 19+ 3-dose series) 2005 HPV VACCINE (1 - 3-dose SCDM series) 2013 DEPRESSION SCREENING 07/03/2024 COVID-19 VACCINE (1 - 2023-2 5 season) 2025 INFLUENZA VACCINE (#1) 2025 ZOSTER VACCINE (1 [...] Name:JORGE MEADOWS Subscriber ID:Not on file Address: [address] [place] [address] Payer ID:Not on file Group ID:Not on file Type:Self Pay Address: [place], [place] [facility] SELF PAY NO INSURANCE Member Subscriber Plan / Payer (Ef fective for All Dates) Name:Lindsey Meadowsd Member ID:Not on file Relation to Subscriber:Not on file Name:JORGE MEADOWS Subscriber ID:Not on file Address: [address] [place] [address] Payer ID:Not on file Group ID:Not on file Type:Self Pay Address: [place], [place] [employer] [facility] [facility] SELF PAY NO INSURANCE Member Subscriber Plan / Payer (Ef fective for All Dates) Name:Jorge Meadows Member ID:Not on file Relation to Subscriber:Not on file Name:JORGE MEADOWS Subscriber ID:Not on file Address: [address] [place] [id number] Payer ID:Not on file Group ID:Not on file Type:Self Pay Address: [place], [place] Care Teams Buildings And Grounds Director Relationship Specialty Start Date End Date Kesha Parra MD [address] [place] [address] PCP - General Family Medicine 07/10/17
== END 2025-04-29 09:20 | disposition home or self-care (01) ==
PROVIDERS: PCP Family Medicine; Visit Provider Urology
DX: N20.0 Calculus of kidney (principal)
CPT/HCPCS: 74018